=== PATIENT | male | born 1995 | race Caucasian/White ===

== ENCOUNTER → 2016-05-09 | Outpatient (CLI) | payer OTHER ==
--- NOTE | 2016-05-09 12:16 | US ---
EXAMINATION TYPE: US abdomen complete DATE OF EXAM: 05/09/2016 11:13 AM COMPARISON: CT 2015 , US 2014 CLINICAL History: mid abd pain loss of appetite for a year EXAM MEASUREMENTS: Liver Length:13.7 cm Gallbladder Wall: 0.1 cm CBD: 0.3 cm Spleen: 11.2 cm Right Kidney: 11.1 x 4.3 x 5.7 cm Left Kidney: 11.0 x 4.4 x 5.2 cm ANATOMY: TECHNOLOGIST IMPRESSION: large body habitus, overlying bowel gas Pancreas: large body habitus, overlying bowel gas, portions seen wnl Liver: wnl Gallbladder: Within normal limits Evidence for sonographic Jo's sign: no CBD: Within normal limits Spleen: Within normal limits Right Kidney: No hydronephrosis or masses seen Left Kidney: No hydronephrosis or masses seen Upper IVC: Within normal limits large body habitus, overlying bowel gas Abd Aorta: Within normal limitslarge body habitus, overlying bowel gas No acute changes are evident. Some debris may be within the gallbladder. This could be due to averagi ng with the adjacent wall as well. IMPRESSION: 1. No acute abdominal process. 2. Some debris may be within the gallbladder.
== END | disposition home or self-care (01) ==
LOC: RADUSWWP 10:57
PROVIDERS: ATTEND Family Medicine
DX: R10.9 Unspecified abdominal pain (principal)
CPT/HCPCS: 76700

== ENCOUNTER → 2016-05-25 | Outpatient (CLI) | payer OTHER ==
--- NOTE | 2016-05-25 10:09 | NM ---
EXAMINATION TYPE: NM hepatobiliary w EF DATE OF EXAM: 05/25/2016 10:01 AM COMPARISON: NONE HISTORY: Right upper quadrant pain TECHNIQUE: After the intravenous administration of 4.59 mCi Tc 99m Mebrofenin hepatobiliary scintigra phy is performed. Immediate images post injection. FINDINGS: There is satisfactory initial accumulation of tracer by the liver. The gallbladder is visualized wit hin 12 minutes. The small bowel activity is noted within 4 minutes. At one hour 8 ounces of oral en sure plus is given to mimic CCK and gallbladder ejection fraction is calculated at 85 %, in the ge l range. Therefore there is no scintigraphic evidence of cystic or common bile duct obstruction to s uggest acute cholecystitis or gallbladder dyskinesia. IMPRESSION: Hypercontractility of the gallbladder.
== END | disposition home or self-care (01) ==
LOC: RADNMMAIN 08:08
PROVIDERS: ATTEND Family Medicine
DX: K82.0 Obstruction of gallbladder (principal)
CPT/HCPCS: 78226; A9537

== ENCOUNTER → 2016-05-30 | Outpatient (CLI) | payer OTHER ==
--- NOTE | 2016-05-30 10:53 | XR ---
EXAMINATION TYPE: XR lumbar spine 2 or 3V DATE OF EXAM: 05/30/2016 10:44 AM CLINICAL HISTORY: pain TECHNIQUE: Three views of the lumbar spine are submitted. COMPARISON: None. FINDINGS: There are 5 lumbar type vertebral bodies identified. The lumbar spine shows satisfactory alignment w ithout evidence of acute fracture or dislocation. Vertebral body heights are within normal limits. Disc spaces are within normal limits. The overlying soft tissue appears unremarkable. IMPRESSION: No acute fracture or dislocation is seen in the lumbar spine. ICD 10 NO FRACTURE, INITIAL EVALUATION
== END | disposition home or self-care (01) ==
LOC: RADXRMAIN 10:26
PROVIDERS: ATTEND Family Medicine
DX: M54.5 Low back pain (principal)
CPT/HCPCS: 72100

== ENCOUNTER 2016-06-15 20:40 | Emergency (ER) | payer OTHER ==
[2016-06-15 20:54] VITALS: TEMP 98.2
[2016-06-15] MEDS ORDERED: KETOROLAC 60 MG/2 ML VIAL IM STA (22:49)
[2016-06-15] MEDS ORDERED: CYCLOBENZAPRINE 10 MG TAB PO STA (22:50)
--- NOTE | 2016-06-15 22:53 | ED ---
Back Pain HPI - General Chief Complaint: Back Pain/Injury Stated Complaint: Back Pain Time Seen by Provider: 06/15/16 21:46 Source: patient, RN notes reviewed Limitations: no limitations - History of Present Illness Initial Comments: Patient is 20-year-old male presents to the emergency room for evaluation of right-sided low back pain. Patient states he woke up this morning, did chores and began having pinching right-sided back pain. Patient states the pain has not subsided since it began. Patient denies taking anything for his symptoms. Patient denies fecal or urinary incontinence. Patient denies saddle anesthesia. Patient denies numbness or tingling in his extremities. Patient denies any history of low back pain. Patient states pain is worse whenever he moves his back or walks. Patient denies recent falls or trauma to his back. Patient denies any recent heavy lifting. - Related Data Home Medications Medication Instructions Recorded Confirmed Multivitamins, Thera [Multivitamin] 1 tab PO DAILY 06/15/16 06/15/16 Previous Rx's Medication Instructions Recorded Cyclobenzaprine [Flexeril] 10 mg PO TID PRN #12 tab 06/15/16 Allergies Allergy/AdvReac Type Severity Reaction Status Date / Time prochlorperazine AdvReac AGITATION Verified 06/15/16 21:32 [From Compazine] Review of Systems ROS Statement: Those systems with pertinent positive or pertinent negative responses have been documented in the HPI. ROS Other: All systems not noted in ROS Statement are negative. Past Medical History Past Medical History: Hyperlipidemia History of Any Multi-Drug Resistant Organisms: None Reported Past Surgical History: No Surgical Hx Reported Past Psychological History: ADD/ADHD Smoking Status: Current every day smoker Past Alcohol Use History: Occasional Past Drug Use History: Marijuana General Exam - General Exam Comments Initial Comments: Laying in exam room, uncomfortable secondary to pain, no acute distress. Limitations: no limitations General appearance: alert, in no apparent distress Head exam: Present: atraumatic, normocephalic, normal inspection Eye exam: Present: normal appearance ENT exam: Present: normal exam Neck exam: Present: normal inspection Respiratory exam: Absent: respiratory distress Back exam: Present: normal inspection, paraspinal tenderness (Right lumbosacral area). Absent: vertebral tenderness Expanded Back exam: Negative Straight Leg Raising: Left, Right Neurological exam: Present: alert, oriented X3 Psychiatric exam: Present: normal affect, normal mood Skin exam: Present: warm, dry, intact, normal color. Absent: rash Course Vital Signs 06/15/16 06/15/16 20:50 23:34 Temperature 98.2 F Pulse Rate 86 83 Respiratory 18 16 Rate Blood Pressure 135/66 150/85 O2 Sat by Pulse 98 97 Oximetry Medical Decision Making - Medical Decision Making Patient is a 20-year-old male presents emergency room for evaluation of right- sided back pain. Patient has no neuro deficits. Will send patient home with muscle relaxers and advised him to return for any worsening symptoms. Patient states he has ibuprofen at home. Patient states he understands everything that was discussed with him. Return parameters discussed. Case discussed with Dr. Mosqueda. Disposition Clinical Impression: Low back strain Disposition: HOME SELF-CARE Instructions: Acute Low Back Pain (ED) Additional Instructions: Alternate ice and heat. Take ibuprofen as needed for pain. Take Flexeril as needed for severe pain. Please follow up with primary care provider in 1-2 days. If any new symptom arises or symptoms worsen, return to ER as soon as possible. Prescriptions: Cyclobenzaprine [Flexeril] 10 mg PO TID PRN #12 tab PRN Reason: Pain Referrals: Marcos Motta DO [Primary Care Provider] - 1-2 days Time of Disposition: 22:52
[2016-06-15 23:35] VITALS: BP 150/85; PULSE 83; RESP 16
== END 2016-06-15 23:34 | disposition home or self-care (01) ==
LOC: EC 20:40
DX: S39.012A Strain of muscle, fascia and tendon of lower back, initial encounter (principal); F17.200 Nicotine dependence, unspecified, uncomplicated; Z79.899 Other long term (current) drug therapy; Z88.8 Allergy status to other drugs, medicaments and biological substances; X58.XXXA Exposure to other specified factors, initial encounter
CPT/HCPCS: 99283; 96372; J1885

== ENCOUNTER 2016-06-24 10:45 | Day surgery (SDC) | payer OTHER ==
[2016-06-21 15:56] VITALS: BMI 31.8
[~2016-06-24 10:45] MED LIST: DEXAMETHASONE SOD PHOSPHATE 10 MG/ML 1 ML VIAL IV ONE; HEPARIN SODIUM,PORCINE 5,000 UNIT/ML 1 ML VIAL SQ ONE; LACTATED RINGERS 1,000 ML IV SCH; MIDAZOLAM 2 MG/2 ML VIAL IV PRN; ONDANSETRON 4 MG/2 ML VIAL IVP ONE; SCOPOLAMINE 1.5MG/72HR PATCH TRANSDERM ONE; ceFAZolin 2 GM in SODIUM CHLORIDE 0.9% 100 ML IVPB ONE
[2016-06-24] MEDS ORDERED: LIDOCAINE 1% 20 ML VIAL (10MG/ML) FOR IV START INTRADERMA ONE (11:02)
--- NOTE | 2016-06-24 12:13 | P.GSHP ---
History of Present Illness H&P Date: 06/24/16 Chief Complaint: Right upper quadrant pain This a 20-year-old male referred from Dr. Marcos Walsh. Patient presents today for laparoscopic cholecystectomy. He's had several months were quadrant pain. His recent HIDA scan shows an elevated ejection fraction cyst with biliary hyperkinesis. - Constitutional Constitutional: Reports as per HPI Past Medical History Past Medical History: Hyperlipidemia Additional Past Medical History / Comment(s): ABD. PAIN, DIARRHEA, NAUSEA History of Any Multi-Drug Resistant Organisms: None Reported Past Surgical History: No Surgical Hx Reported Additional Past Surgical History / Comment(s): WISDOM TEETH Past Anesthesia/Blood Transfusion Reactions: No Reported Reaction Past Psychological History: ADD/ADHD Additional Psychological History / Comment(s): NO CURRENT MEDICATION Smoking Status: Current some day smoker Past Alcohol Use History: Occasional Additional Past Alcohol Use History / Comment(s): 1/2 PPD FOR 4 YEARS Past Drug Use History: Marijuana Additional Drug Use History / Comment(s): STATES DAILY USE, INSTRUCTED TO HOLD 24 HRS PRIOR TO SURGERY Medications and Allergies Home Medications Medication Instructions Recorded Confirmed Type Multivitamins, Thera [Multivitamin] 1 tab PO DAILY 06/15/16 06/24/16 History Allergies Allergy/AdvReac Type Severity Reaction Status Date / Time prochlorperazine AdvReac AGITATION Verified 06/24/16 10:55 [From Compazine] Surgical - Exam Vital Signs Temp Pulse Resp BP Pulse Ox 97.3 F L 79 16 131/81 97 06/24/16 11:01 06/24/16 11:01 06/24/16 11:01 06/24/16 11:01 06/24/16 11:01 - General well developed, no distress - Eyes PERRL - ENT normal pinna - Neck no masses - Respiratory normal expansion - Cardiovascular Rhythm: regular - Abdomen Abdomen: soft, non tender Assessment and Plan Plan: Right upper quadrant pain Chronically cholecystitis Abnormal HIDA scan We will perform laparoscopic cholecystectomy
[2016-06-24] MEDS ORDERED: NEOSTIGMINE 1 MG/ML 10 ML VIAL ONE (12:22)
[2016-06-24] MEDS ORDERED: MIDAZOLAM 2 MG/2 ML VIAL ONE (12:22)
[2016-06-24] MEDS ORDERED: GLYCOPYRROLATE 0.2 MG/ML 2 ML VIAL ONE (12:22)
[2016-06-24] MEDS ORDERED: fentaNYL (PF) 50 MCG/ML 2 ML AMP ONE (12:22)
[2016-06-24] MEDS ORDERED: PROPOFOL 10 MG/ML 20 ML VIAL IV ONE (12:22)
[2016-06-24] MEDS ORDERED: HYDROmorphone (PF) 1 MG/ML ONE (12:22)
[2016-06-24] MEDS ORDERED: LIDOCAINE 1% INJ 10MG/ML (20 ML MDV) ONE (12:22)
[2016-06-24] MEDS ORDERED: ROCURONIUM BROMIDE 10 MG/ML 10 ML VIAL IV ONE (12:22)
[2016-06-24] MEDS ORDERED: BUPIVACAIN-EPI 0.25%-1:200,000 30 ML VIAL SQ ONE (12:58)
[2016-06-24] MEDS ORDERED: LACTATED RINGERS 1,000 ML IV ONE (12:59)
--- NOTE | 2016-06-24 13:23 | P.OP ---
Date of Procedure: 06/24/16 Preoperative Diagnosis: Cholecystitis Postoperative Diagnosis: Cholecystitis Procedure(s) Performed: Laparoscopic cholecystectomy Anesthesia: ASH Surgeon: Leroy Padron Estimated Blood Loss (ml): 5 Pathology: other (Gallbladder) Condition: stable Disposition: PACU Description of Procedure: The patient was placed on the operating table. The patient received a general endotracheal tube anesthesia. The patients abdomen was prepped and draped in the usual sterile fashion. Through an infraumbilical stab incision, the fascia of the anterior abdominal wall was grasped with a pair of Kochers and then the Veress needle was placed in the peritoneal cavity. Position of the Veress needle was confirmed with positive drop test. The abdomen was then insufflated. After adequate insufflation, the 10 mm trocar was placed in the peritoneal cavity. Following this the laparoscope was placed in the peritoneal cavity. The patient was placed in the head-up, right side up position and then a 5 mm trocar was placed in the right lateral and right subcostal position under direct visualization. A 8 mm trocar was placed in the epigastric position. The gallbladder was grasped in the fundus and infundibulum. Traction on the gallbladder was placed in the lateral and the cephalad positions. The triangle of Calot was visualized.. The cystic duct was bluntly dissected until the union of the cystic duct and common bile duct was seen. The cystic duct was then divided and sealed with the Harmonic scissors. A PDS Endoloop was then placed throughout the cystic duct stump. The cystic artery divided and sealed with the Harmonic scissors. The gallbladder was then removed from the liver bed using Harmonic scissors. The gallbladder was then extracted through the epigastric port site. Operative field was checked for any bleeding spots and Harmonic scissors was used to coagulate the liver bed. The abdomen was irrigated. The trocars were removed. The skin was closed using interrupted 3-0 Vicryl suture. Dermabond dressing were applied. The patient tolerated the procedure well.
[2016-06-24] MEDS: HYDROmorphone 1 MG/ML 1 ML SYRINGE IVP PRN ×2 (13:31→13:36)
[2016-06-24 13:39] VITALS: TEMP 97.6
[2016-06-24] MEDS ORDERED: KETOROLAC 30 MG/ML 1 ML VIAL IVP ONE (13:46)
[2016-06-24 14:22] VITALS: RESP 18
[2016-06-24 14:41] VITALS: BP 134/91
[2016-06-24 15:13] VITALS: PULSE 69
== END 2016-06-24 15:14 | disposition home or self-care (01) ==
LOC: OR 10:45
PROVIDERS: ATTEND Surgery
DX: K81.1 Chronic cholecystitis (principal); E07.9 Disorder of thyroid, unspecified; F90.9 Attention-deficit hyperactivity disorder, unspecified type; K21.9 Gastro-esophageal reflux disease without esophagitis; F17.200 Nicotine dependence, unspecified, uncomplicated; Z88.8 Allergy status to other drugs, medicaments and biological substances; Z79.899 Other long term (current) drug therapy
CPT/HCPCS: 88304; 47562; J2250; J1644; J1100; J2710; J0690; J2405; J2001; J3010; J1885; J1170; J2704

== ENCOUNTER 2016-06-25 19:01 | Observation (INO) | payer OTHER ==
[2016-06-25] MEDS ORDERED: SODIUM CHLORIDE 0.9% 1,000 ML IV STA ×2 (19:59)
[2016-06-25] MEDS ORDERED: ONDANSETRON 4 MG/2 ML VIAL IVP STA (19:59)
[2016-06-25] MEDS ORDERED: HYDROmorphone 1 MG/ML 1 ML SYRINGE IVP STA (19:59)
[2016-06-25] MEDS ORDERED: PANTOPRAZOLE 40 MG/10 ML VIAL IVP STA (19:59)
--- NOTE | 2016-06-25 20:06 | ED ---
General Adult HPI - General Chief complaint: Recheck/Abnormal Lab/Rx Stated complaint: POST OP PAIN, BLEEDING Time Seen by Provider: 06/25/16 19:45 Source: patient, family, RN notes reviewed Mode of arrival: ambulatory Limitations: no limitations - History of Present Illness Initial comments: Chief complaint and history of present illness is a 20-year-old male who had a laparoscopic cholecystectomy yesterday. Last night he had difficulty breathing when laying down he had significant pain in the midepigastric region. He noticed today had a large discoloration ecchymotic area at the site of the midline trocar insertion. He reports was hard to breathe because of the pain it caused lung breathing. He had to sleep upright. Pain persisted throughout the day. Today became very nauseated and vomited a large amount of black material. - Related Data Home Medications Medication Instructions Recorded Confirmed Multivitamins, Thera [Multivitamin] 1 tab PO DAILY 06/15/16 06/25/16 HYDROcodone/APAP 7.5-325MG [[place] 1 tab PO Q4H PRN 06/25/16 06/25/16 7.5] Allergies Allergy/AdvReac Type Severity Reaction Status Date / Time prochlorperazine AdvReac AGITATION Verified 06/25/16 19:23 [From Compazine] Review of Systems ROS Statement: Those systems with pertinent positive or pertinent negative responses have been documented in the HPI. Review of systems no complaint headache or visual acuity changes no chest pain feel short of breath because hard to breathe when he lays down because of the pain from his abdomen especially the epigastric region where he has an ecchymotic area and possible small hematoma and trocar insertion site. Denies chills. He did vomit once he reportedly was a large amount of black material. Did not have any preceding stomach ulcers or problems. Has not had a bowel movement yet. All systems reviewed Past medical problems significant for hyperlipidemia which is controlled with losing weight. He's had chronic abdominal pain for months. He reports test showed he had a bad gallbladder. He had a cholecystectomy done laparoscopically yesterday. He also had daily diarrhea for months. Other surgeries include wisdom teeth removal. Family history significant for grandmother with skin cancer grandmother and mother with ovarian cancer. The patient has ALLERGIES to Compazine. He does smoke cigarettes strongly encouraged to stop drinks alcohol occasionally. ROS Other: All systems not noted in ROS Statement are negative. Past Medical History Past Medical History: Hyperlipidemia Additional Past Medical History / Comment(s): ABD. PAIN, DIARRHEA, NAUSEA History of Any Multi-Drug Resistant Organisms: None Reported Past Surgical History: Cholecystectomy Additional Past Surgical History / Comment(s): WISDOM TEETH Past Anesthesia/Blood Transfusion Reactions: No Reported Reaction Past Psychological History: ADD/ADHD Additional Psychological History / Comment(s): NO CURRENT MEDICATION Smoking Status: Current some day smoker Past Alcohol Use History: Occasional Additional Past Alcohol Use History / Comment(s): 1/2 PPD FOR 4 YEARS Past Drug Use History: Marijuana Additional Drug Use History / Comment(s): STATES DAILY USE, INSTRUCTED TO HOLD 24 HRS PRIOR TO SURGERY General Exam - General Exam Comments Initial Comments: General: The patient is awake and alert, states she's having epigastric pain or has a large area of ecchymosis and possible hematoma in the subcu tissue. Also vomited large amount of black material one day after that was Cholecystectomy. Vital signs show temperature 97.3 pulse 72 respiratory rate 20 pulse ox on percent room air blood pressure 132/79 Eye: Pupils are equal, , extra-ocular movements are intact; there is normal conjunctiva bilaterally. No signs of icterus. Ears, nose, mouth and throat: There are moist mucous membranes Neck: The neck is supple, there is no tenderness Cardiovascular: There is a regular rate and rhythm. No murmur, rub or gallop is appreciated. Respiratory: Lungs are clear to auscultation, respirations are non-labored, breath sounds are equal. No wheezes, stridor, rales, or rhonchi. Gastrointestinal: Patient has midline area of ecchymosis and hematoma at the site of the midline trocar insertion for his surgery yesterday, laparoscopic cholecystectomy. Hypoactive bowel sounds. Voluntary guarding with palpation in the epigastric region. Back: No complaint of back pain. Musculoskeletal: Normal ROM, no tenderness, There is no pedal edema. There is no calf tenderness or swelling. Sensation intact. Pulses equal bilaterally 2+. Neurological: No complaint of any neuro deficits. Skin: Ecchymotic area midline upper abdomen Limitations: no limitations Course Vital Signs 06/25/16 19:07 Temperature 97.3 F L Pulse Rate 72 Respiratory 20 Rate Blood Pressure 132/79 O2 Sat by Pulse 100 Oximetry Medical Decision Making - Medical Decision Making Medical decision making; patient's white count 7.6 hemoglobin 14 hematocrit of 43. Potassium is 3.3 glucose 116. BUN 13 creatinine 0.87 the GFR greater than 60. Total bilirubin elevated at 2.0 AST ALT 250 each X-rays of the abdomen done 2 views. Awaiting radiologist's impression. This time does appear to be nonspecific. No evidence of obstruction. Case discussed with , patient be admitted to his service with IV hydration, potassium replenishment. Pain management. - Lab Data Result diagrams: 06/25/16 20:18 06/25/16 20:18 Lab Results 06/25/16 06/25/16 Range/Units 20:18 20:18 WBC 7.6 (3.8-10.6) k/uL RBC 4.69 (4.30-5.90) m/uL Hgb 14.0 (13.0-17.5) gm/dL Hct 43.1 (39.0-53.0) % MCV 91.9 (80.0-100.0) fL MCH 29.8 (25.0-35.0) pg MCHC 32.4 (31.0-37.0) g/dL RDW 12.8 (11.5-15.5) % Plt Count 205 (150-450) k/uL Neutrophils % 65 % Lymphocytes % 25 % Monocytes % 7 % Eosinophils % 1 % Basophils % 0 % Neutrophils # 5.0 (1.3-7.7) k/uL Lymphocytes # 1.9 (1.0-4.8) k/uL Monocytes # 0.5 (0-1.0) k/uL Eosinophils # 0.1 (0-0.7) k/uL Basophils # 0.0 (0-0.2) k/uL Sodium 143 (137-145) mmol/L Potassium 3.3 L (3.5-5.1) mmol/L Chloride 101 (98-107) mmol/L Carbon Dioxide 27 (22-30) mmol/L Anion Gap 15 mmol/L BUN 13 (9-20) mg/dL Creatinine 0.87 (0.66-1.25) mg/dL Est GFR (MDRD) Af Amer >60 (>60 ml/min/1.73 sqM) Est GFR (MDRD) Non-Af >60 (>60 ml/min/1.73 sqM) Glucose 116 H (74-99) mg/dL Calcium 10.0 (8.4-10.2) mg/dL Total Bilirubin 2.0 H (0.2-1.3) mg/dL AST 254 H (17-59) U/L ALT 226 H (21-72) U/L Alkaline Phosphatase 118 (38-126) U/L Total Protein 8.5 H (6.3-8.2) g/dL Albumin 4.9 (3.5-5.0) g/dL Amylase 59 (30-110) U/L Lipase 61 (23-300) U/L Disposition Clinical Impression: Postoperative epigastric abdominal pain Disposition: ADMITTED IP TO THIS HOSP Condition: Stable
[2016-06-25 20:25] LABS: Basophils % (A) 0 %; CH 31.2; CHCM 34.1; Eosinophils # (A) 0.1 k/uL (0-0.7); Eosinophils % (A) 1 %; HCT 43.1 % (39.0-53.0); Luc # (Auto) 0.15; Luc % (Auto) 2; Lymphocytes # (A) 1.9 k/uL (1.0-4.8); Lymphocytes % (A) 25 %; MCH 29.8 pg (25.0-35.0); MCHC 32.4 g/dL (31.0-37.0); MCV 91.9 fL (80.0-100.0); Mean Platelet Volume 7.2; Monocytes # (A) 0.5 k/uL (0-1.0); Monocytes % (A) 7 %; Neutrophils % (A) 65 %; RBC 4.69 m/uL (4.30-5.90); RDW 12.8 % (11.5-15.5); WBC 7.6 k/uL (3.8-10.6); WBC (Perox) 7.46
[2016-06-25 20:35] LABS: ALT 226 U/L (21-72); AST 254 U/L (17-59); Alkaline Phosphatase 118 U/L (38-126); Amylase 59 U/L (30-110); Anion Gap 15 mmol/L; Blood Urea Nitrogen 13 mg/dL (9-20); Carbon Dioxide 27 mmol/L (22-30); Chloride 101 mmol/L (98-107); Glucose 116 mg/dL (74-99); Non-African American GFR(MDRD) >60 (>60 ml/min/1.73 sqM); Potassium 3.3 mmol/L (3.5-5.1); Sodium 143 mmol/L (137-145); Total Protein 8.5 g/dL (6.3-8.2)
[2016-06-25] MEDS ORDERED: POTASSIUM CHLORIDE 20 MEQ, LIDOCAINE 2% INJ 20 MG in SODIUM CHLORIDE 0.9% 100 ML IVPB ONE (21:07)
[2016-06-25] MEDS ORDERED: HYDROmorphone 1 MG/ML 1 ML SYRINGE IV PRN (21:12)
[2016-06-25] MEDS ORDERED: NALOXONE 0.4 MG/ML 1 ML VIAL IV PRN (21:12)
[2016-06-25] MEDS ORDERED: ONDANSETRON 4 MG/2 ML VIAL IVP PRN (21:12)
--- NOTE | 2016-06-25 21:36 | XR ---
EXAMINATION TYPE: XR abdomen 2V DATE OF EXAM: 06/25/2016 8:57 PM COMPARISON: NONE INDICATION: Abdomen pain TECHNIQUE: Abdomen examined in supine and upright views. FINDINGS: There is a normal bowel gas pattern. Psoas margins are normal. No organomegaly is present. No suspicious air-fluid levels or differential air-fluid levels are present. No free air is present. IMPRESSION: 1. Unremarkable Abdomen
[2016-06-25] MEDS ORDERED: LORazepam 1 MG TAB PO STA (21:47)
[2016-06-25 21:57] VITALS: RESP 18
[2016-06-26 01:10] VITALS: BMI 31.8
[2016-06-26 07:10] LABS: Basophils % (A) 0 %; CH 30.8; CHCM 33.2; Eosinophils % (A) 1 %; HCT 42.2 % (39.0-53.0); HDW 2.41; HGB 13.6 gm/dL (13.0-17.5); Luc # (Auto) 0.11; Luc % (Auto) 2; Lymphocytes # (A) 1.6 k/uL (1.0-4.8); Lymphocytes % (A) 30 %; MCH 30.1 pg (25.0-35.0); MCHC 32.3 g/dL (31.0-37.0); MCV 93.2 fL (80.0-100.0); Mean Platelet Volume 6.7; Monocytes # (A) 0.4 k/uL (0-1.0); Monocytes % (A) 9 %; Neutrophils % (A) 58 %; RBC 4.53 m/uL (4.30-5.90); RDW 12.9 % (11.5-15.5); WBC 5.2 k/uL (3.8-10.6); WBC (Perox) 5.35
[2016-06-26 07:24] LABS: ALT 382 U/L (21-72); AST 332 U/L (17-59); Alkaline Phosphatase 104 U/L (38-126); Anion Gap 8 mmol/L; Blood Urea Nitrogen 11 mg/dL (9-20); Calcium 9.6 mg/dL (8.4-10.2); Carbon Dioxide 31 mmol/L (22-30); Chloride 103 mmol/L (98-107); Glucose 95 mg/dL (74-99); Non-African American GFR(MDRD) >60 (>60 ml/min/1.73 sqM); Potassium 4.5 mmol/L (3.5-5.1); Sodium 142 mmol/L (137-145); Total Bilirubin 2.3 mg/dL (0.2-1.3); Total Protein 7.3 g/dL (6.3-8.2)
[2016-06-26] MEDS: SODIUM CHLORIDE 0.9% 1,000 ML IV SCH ×2 (08:02→14:11)
[2016-06-26 08:15] VITALS: BP 123/68; PULSE 68; TEMP 97.7
--- NOTE | 2016-06-26 08:51 | P.GSHP ---
History of Present Illness H&P Date: 06/26/16 Chief Complaint: Epigastric pain This a 20-year-old male who presented to the emergency room yesterday evening. The patient is one day status post laparoscopic cholecystectomy. Patient had epigastric pain near the port site. He has developed some ecchymosis at this area. Patient developed nausea after taking pain meds and had an emesis. The patient has received fluid hydration overnight. He actually feels better today and is wishing to go home. He's not to have some mild elevation of his liver function tests. - Constitutional Constitutional: Reports as per HPI Past Medical History Past Medical History: Hyperlipidemia Additional Past Medical History / Comment(s): ABD. PAIN, DIARRHEA, NAUSEA History of Any Multi-Drug Resistant Organisms: None Reported Past Surgical History: Cholecystectomy Additional Past Surgical History / Comment(s): WISDOM TEETH Past Anesthesia/Blood Transfusion Reactions: No Reported Reaction Past Psychological History: ADD/ADHD Additional Psychological History / Comment(s): NO CURRENT MEDICATION Smoking Status: Current some day smoker Past Alcohol Use History: Occasional Additional Past Alcohol Use History / Comment(s): 1/2 PPD FOR 4 YEARS Past Drug Use History: Marijuana Additional Drug Use History / Comment(s): STATES DAILY USE, INSTRUCTED TO HOLD 24 HRS PRIOR TO SURGERY Medications and Allergies Home Medications Medication Instructions Recorded Confirmed Type Multivitamins, Thera [Multivitamin] 1 tab PO DAILY 06/15/16 06/25/16 History HYDROcodone/APAP 7.5-325MG [[place] 1 tab PO Q4H PRN 06/25/16 06/25/16 History 7.5] Allergies Allergy/AdvReac Type Severity Reaction Status Date / Time prochlorperazine AdvReac AGITATION Verified 06/25/16 19:23 [From Compazine] Surgical - Exam Vital Signs Temp Pulse Resp BP Pulse Ox 97.3 F L 72 20 132/79 100 06/25/16 19:07 06/25/16 19:07 06/25/16 19:07 06/25/16 19:07 06/25/16 19:07 - General well developed, well nourished, no distress - Eyes PERRL - ENT normal pinna - Neck no masses - Respiratory normal expansion - Cardiovascular Rhythm: regular - Abdomen Abdomen soft. There is some area of ecchymosis around the epigastric trocar site measured probably 10 cm in diameter. There is no rebound or guarding. There is some minimal tenderness at the epigastric trocar site. There is abdominal distention.. Abdomen: soft Results - Labs 06/26/16 06:16 06/26/16 06:16 Abnormal Lab Results - Last 24 Hours (Table) 06/26/16 Range/Units 06:16 Carbon Dioxide 31 H (22-30) mmol/L Total Bilirubin 2.3 H (0.2-1.3) mg/dL AST 332 H (17-59) U/L ALT 382 H (21-72) U/L Diabetes panel 06/26/16 Range/Units 06:16 Sodium 142 (137-145) mmol/L Potassium 4.5 (3.5-5.1) mmol/L Chloride 103 (98-107) mmol/L Carbon Dioxide 31 H (22-30) mmol/L BUN 11 (9-20) mg/dL Creatinine 1.01 (0.66-1.25) mg/dL Glucose 95 (74-99) mg/dL Calcium 9.6 (8.4-10.2) mg/dL AST 332 H (17-59) U/L ALT 382 H (21-72) U/L Alkaline Phosphatase 104 (38-126) U/L Total Protein 7.3 (6.3-8.2) g/dL Albumin 4.2 (3.5-5.0) g/dL Calcium panel 06/26/16 Range/Units 06:16 Calcium 9.6 (8.4-10.2) mg/dL Albumin 4.2 (3.5-5.0) g/dL Pituitary panel 06/26/16 Range/Units 06:16 Sodium 142 (137-145) mmol/L Potassium 4.5 (3.5-5.1) mmol/L Chloride 103 (98-107) mmol/L Carbon Dioxide 31 H (22-30) mmol/L BUN 11 (9-20) mg/dL Creatinine 1.01 (0.66-1.25) mg/dL Glucose 95 (74-99) mg/dL Calcium 9.6 (8.4-10.2) mg/dL Adrenal panel 06/26/16 Range/Units 06:16 Sodium 142 (137-145) mmol/L Potassium 4.5 (3.5-5.1) mmol/L Chloride 103 (98-107) mmol/L Carbon Dioxide 31 H (22-30) mmol/L BUN 11 (9-20) mg/dL Creatinine 1.01 (0.66-1.25) mg/dL Glucose 95 (74-99) mg/dL Calcium 9.6 (8.4-10.2) mg/dL Total Bilirubin 2.3 H (0.2-1.3) mg/dL AST 332 H (17-59) U/L ALT 382 H (21-72) U/L Alkaline Phosphatase 104 (38-126) U/L Total Protein 7.3 (6.3-8.2) g/dL Albumin 4.2 (3.5-5.0) g/dL - Imaging Abdominal x-ray: report reviewed (Nonspecific) Assessment and Plan Plan: Status post laparoscopic cholecystectomy postoperative day 2. Patient feels well. His liver function tests were mildly elevated. We will order a HIDA scan to make sure there is no evidence of biliary obstruction or leak.
[2016-06-26] MEDS ORDERED: PANTOPRAZOLE 40 MG/10 ML VIAL IV SCH (09:00)
--- NOTE | 2016-06-26 11:53 | NM ---
EXAMINATION TYPE: NM hepatobiliary wo EF DATE OF EXAM: 06/26/2016 11:35 AM COMPARISON: NONE HISTORY: Pain following cholecystectomy. TECHNIQUE: After the intravenous administration of 5.3 mCi Tc 99m Mebrofenin hepatobiliary scintigrap hy is performed. Immediate images post injection. FINDINGS: There is prompt egress of activity from the liver into the small bowel. No abnormal activity is seen. IMPRESSION: STATUS POST CHOLECYSTECTOMY.
--- NOTE | 2016-10-08 08:59 | DS ---
DATE OF ADMISSION: 06/25/2016 DATE OF DISCHARGE: 06/26/2016 COURSE IN THE HOSPITAL: This is a 22-year-old male who is admitted for postoperative pain after a laparoscopic cholecystectomy. The patient's stay was unremarkable. Please see hospital chart for details.
== END 2016-06-26 14:08 | disposition home or self-care (01) ==
LOC: EC 19:01 → 3OBS 21:10
PROVIDERS: ADMIT Surgery; ATTEND Surgery
DX: G89.18 Other acute postprocedural pain (principal); R10.13 Epigastric pain; S30.1XXA Contusion of abdominal wall, initial encounter; R11.2 Nausea with vomiting, unspecified; Z90.49 Acquired absence of other specified parts of digestive tract; F17.200 Nicotine dependence, unspecified, uncomplicated; Z88.8 Allergy status to other drugs, medicaments and biological substances; L76.32 Postprocedural hematoma of skin and subcutaneous tissue following other procedure; Y83.6 Removal of other organ (partial) (total) as the cause of abnormal reaction of the patient, or of later complication, without mention of misadventure at the time of the procedure
CPT/HCPCS: 36415; 80053 ×2; 82150; 83690; 85025 ×2; 74020; 78226; 99285; 96365; 96375; 96361; G0378 ×2; A9537; J2001; J2405; J3480; J1170; C9113 ×2; 96376

== ENCOUNTER 2016-07-20 13:14 | Emergency (ER) | payer OTHER ==
[2016-07-20 13:18] VITALS: BP 132/91; PULSE 90; RESP 20; TEMP 97.5
--- NOTE | 2016-07-20 13:29 | ED ---
General Adult HPI - General Chief complaint: Extremity Injury, Upper Stated complaint: Hand Pain Time Seen by Provider: 07/20/16 13:18 Source: patient, RN notes reviewed Mode of arrival: ambulatory Limitations: no limitations - History of Present Illness Initial comments: This is a 21yo male who presents with left hand pain since last night. Patient states he slammed his left hand in the trunk of his car. Patient states it hurts worse to the ulnar aspect of the left hand. Patient states it hurts to make a fist, but the patient is able to move the left hand. Patient denies any numbness/weakness or tingling. Patient denies any recent fever, chills, shortness breath, chest pain, abdominal pain, nausea/vomiting/diarrhea, back pain, hematuria, headache, or visual changes, or any other complaints. - Related Data Home Medications Medication Instructions Recorded Confirmed Multivitamins, Thera [Multivitamin] 1 tab PO DAILY 06/15/16 06/25/16 HYDROcodone/APAP 7.5-325MG [[place] 1 tab PO Q4H PRN 06/25/16 06/25/16 7.5] Allergies Allergy/AdvReac Type Severity Reaction Status Date / Time prochlorperazine AdvReac AGITATION Verified 07/20/16 13:18 [From Compazine] Review of Systems ROS Statement: Those systems with pertinent positive or pertinent negative responses have been documented in the HPI. ROS Other: All systems not noted in ROS Statement are negative. Past Medical History Past Medical History: Hyperlipidemia Additional Past Medical History / Comment(s): ABD. PAIN, DIARRHEA, NAUSEA History of Any Multi-Drug Resistant Organisms: None Reported Past Surgical History: Cholecystectomy Additional Past Surgical History / Comment(s): WISDOM TEETH Past Anesthesia/Blood Transfusion Reactions: No Reported Reaction Past Psychological History: ADD/ADHD Additional Psychological History / Comment(s): NO CURRENT MEDICATION Smoking Status: Current every day smoker Past Alcohol Use History: Occasional Additional Past Alcohol Use History / Comment(s): 1/2 PPD FOR 4 YEARS Past Drug Use History: Marijuana Additional Drug Use History / Comment(s): STATES DAILY USE, INSTRUCTED TO HOLD 24 HRS PRIOR TO SURGERY General Exam - General Exam Comments Initial Comments: General: The patient is awake and alert, in no distress, and does not appear acutely ill. Neck: The neck is supple, there is no tenderness or JVD. Cardiovascular: There is a regular rate and rhythm. No murmur, rub or gallop is appreciated. Respiratory: Lungs are clear to auscultation, respirations are non-labored, breath sounds are equal. No wheezes, stridor, rales, or rhonchi. Musculoskeletal: There is tenderness to palpation over the third fourth and fifth metacarpals and over the fourth and fifth digits of the left hand. There is mild swelling to the ulnar aspect of the left hand with small abrasions to the fourth and fifth MCP joints. There is also some mild tenderness to palpation to the ulnar aspect of the left wrist. There is no tenderness to the anatomical snuffbox. Patient has full range of motion, strength 5/5 and Sensation intact. Radial pulses 2+ bilaterally and capillary refill is normal at less than 2 seconds. Neurological: A&O x 3. CN II-XII intact, There are no obvious motor or sensory deficits. Coordination appears grossly intact. Speech is normal. Skin: Skin is warm and dry and no rashes or lesions are noted. Psychiatric: Normal mood and affect. Limitations: no limitations Course Vital Signs 07/20/16 13:17 Temperature 97.5 F L Pulse Rate 90 Respiratory 20 Rate Blood Pressure 132/91 O2 Sat by Pulse 99 Oximetry Medical Decision Making - Medical Decision Making This is a 21-year-old male who presents with left hand pain. On physical exam There is tenderness to palpation over the third fourth and fifth metacarpals and over the fourth and fifth digits of the left hand. There is mild swelling to the ulnar aspect of the left hand with small abrasions to the fourth and fifth MCP joints. There is also some mild tenderness to palpation to the ulnar aspect of the left wrist. Patient has full range of motion, strength 5/5 and Sensation intact. Radial pulses 2+ bilaterally and capillary refill is normal at less than 2 seconds. X-rays of the left hand and wrist were done and reviewed showing: There is no acute fracture or dislocation seen. Reported by Dr. Menendez. I discussed the results with patient. I discussed rest, ice, elevate and use [place] wrap for compression. I discussed Tylenol and Motrin for pain. I discussed occult fracture. I discussed return parameters.Discussed that patient should follow up with PCP in one to 2 days or return to the [facility] for any worsening symptoms or for any further concerns. Patient was receptive to this plan and patient will be discharged home. Disposition Clinical Impression: Contusion of hand, left, Contusion of wrist, left Disposition: HOME SELF-CARE Condition: Good Instructions: Hand Sprain (ED) Additional Instructions: Please rest, ice, elevate and use Bernardino wrap for compression. Please use Tylenol and Motrin for pain.If symptoms do not improve in the next 7 days repeat x-rays may be needed to rule out occult fracture. Please follow-up with family doctor in the next 2 days of symptoms have not improved. Please return to emergency room if the symptoms increase or worsen or for any other concerns. Referrals: Marcos Motta DO [Primary Care Provider] - 1-2 days Time of Disposition: 13:55
--- NOTE | 2016-07-20 13:41 | XR ---
EXAMINATION TYPE: XR hand complete LT, XR wrist complete LT DATE OF EXAM: 07/20/2016 1:37 PM CLINICAL HISTORY: pain TECHNIQUE: Frontal, lateral and oblique images of the left hand are obtained. COMPARISON: None. FINDINGS: There is no acute fracture/dislocation evident. The joint spaces appear within normal limi ts. Dorsal soft tissue swelling is noted. IMPRESSION: There is no acute fracture or dislocation. ICD 10 NO FRACTURE, INITIAL EVALUATION EXAMINATION TYPE: XR hand complete LT, XR wrist complete LT DATE OF EXAM: 07/20/2016 1:37 PM CLINICAL HISTORY: pain TECHNIQUE: Frontal, lateral and oblique images of the left wrist are obtained. COMPARISON: None. FINDINGS: There is no acute fracture/dislocation evident. The joint spaces appear within normal farrar its. The overlying soft tissue appears unremarkable. IMPRESSION: There is no acute fracture or dislocation seen. ICD 10 NO FRACTURE, INITIAL EVALUATION
== END 2016-07-20 14:00 | disposition home or self-care (01) ==
LOC: EC 13:14
DX: S60.222A Contusion of left hand, initial encounter (principal); S60.212A Contusion of left wrist, initial encounter; W23.0XXA Caught, crushed, jammed, or pinched between moving objects, initial encounter; F17.200 Nicotine dependence, unspecified, uncomplicated; F12.90 Cannabis use, unspecified, uncomplicated; Z88.8 Allergy status to other drugs, medicaments and biological substances
CPT/HCPCS: 99283

== ENCOUNTER 2017-04-20 17:58 | Emergency (ER) | payer OTHER ==
[2017-04-20 18:14] VITALS: BP 147/86; PULSE 98; RESP 17; TEMP 98.8
[2017-04-20] MEDS ORDERED: IBUPROFEN 600 MG TAB PO STA (19:23)
--- NOTE | 2017-04-20 20:00 | ED ---
General Adult HPI - General Chief complaint: ENT Stated complaint: FACIAL SWELLING, DIZZINESS Time Seen by Provider: 04/20/17 19:03 Source: patient, RN notes reviewed Mode of arrival: ambulatory Limitations: no limitations - History of Present Illness Initial comments: This is a 21-year-old male who presents to the emergency department with chief complaint of facial swelling. Patient states that he had right-sided facial swelling along the eye yesterday at approximately 3 PM and again today at work at around noon. Patient states he was sent home and his boss advised him to receive a doctor's note in order to return to work. On presentation to the emergency department, patient no longer has facial swelling. He does state that he has a throbbing headache over the frontal forehead. He states that this is a new onset headache and that he usually does not have headaches. Patient states that for the past 2 months he has also felt dizzy, his last episode being yesterday. Denies fever, chills, chest pain, shortness of breath, abdominal pain, nausea or vomiting, constipation or diarrhea, dysuria or hematuria, numbness or tingling, or vision changes. - Related Data Home Medications Medication Instructions Recorded Confirmed Naproxen Sodium [Aleve] 440 mg PO BID PRN 04/20/17 04/20/17 Allergies Allergy/AdvReac Type Severity Reaction Status Date / Time prochlorperazine AdvReac AGITATION Verified 04/20/17 19:09 [From Compazine] Review of Systems ROS Statement: Those systems with pertinent positive or pertinent negative responses have been documented in the HPI. ROS Other: All systems not noted in ROS Statement are negative. Past Medical History Past Medical History: No Reported History, Hyperlipidemia Additional Past Medical History / Comment(s): ABD. PAIN, DIARRHEA, NAUSEA History of Any Multi-Drug Resistant Organisms: None Reported Past Surgical History: Cholecystectomy Additional Past Surgical History / Comment(s): WISDOM TEETH Past Anesthesia/Blood Transfusion Reactions: No Reported Reaction Past Psychological History: ADD/ADHD Smoking Status: Current every day smoker Past Alcohol Use History: Occasional Past Drug Use History: Marijuana General Exam - General Exam Comments Initial Comments: General: Awake and alert, well-developed; in no apparent distress. HEENT: Head atraumatic, normocephalic. No facial swelling noted at this time. Pupils are equal, round and reactive to light. Extraocular movements intact. Oropharynx moist without erythema or exudate. Neck: Supple. Normal ROM. Cardiovascular: Regular rate and rhythm. No murmurs, rubs or gallops. Chest symmetrical. Respiratory: Lungs clear to auscultation bilaterally. No wheezes, rales or rhonchi. Normal respiratory effort with no use of accessory muscles. Musculoskeletal: Normal ROM, no tenderness bilateral upper and lower extremities. Ambulating normally. Skin: [place], warm and dry without rashes or lesions. Neurological: Alert and oriented x3. CN II-XII grossly intact. Speech is fluent and answers are appropriate. No focal neuro deficits. Psychiatric: Normal mood and affect. No overt signs of depression or anxiety noted. Limitations: no limitations Course Vital Signs 04/20/17 18:11 Temperature 98.8 F Pulse Rate 98 Respiratory 17 Rate Blood Pressure 147/86 O2 Sat by Pulse 100 Oximetry Medical Decision Making - Medical Decision Making This is a 21-year-old male who presented to the emergency department for evaluation of right-sided facial swelling. Patient was sent home from work by his boss today and advised him to obtain a doctor's note in order to return to work. On presentation to the emergency room patient no longer has facial swelling so I'm unable to assess his complaint. He does however complain of a new onset headache. Patient states he normally does not get headaches. He describes the headache as throbbing and is located across his forehead. Patient given ibuprofen while in the emergency department. Computed tomography scan of brain revealed no acute abnormalities. Patient will be discharged home. I provided him with a primary care provider to follow up with. He is in no acute distress at this time. He is in agreement and voices understanding. All questions are answered. - Radiology Data Radiology results: report reviewed CT brain impression: No acute process. Disposition Clinical Impression: Headache Disposition: HOME SELF-CARE Condition: Good Instructions: General Headache (ED) Additional Instructions: Please follow up with primary care provider within 1-2 days. Return to emergency department if symptoms should worsen or any concerns arise. Referrals: None,Stated [Primary Care Provider] - 1-2 days Yahaira Ruffin MD [REFERRING] - 1-2 days Time of Disposition: 20:43
--- NOTE | 2017-04-20 20:21 | CT ---
EXAMINATION: CT brain wo con DATE AND TIME: 04/20/2017 7:55 PM ORDERING PROVIDER: Willow Worrell CLINICAL INDICATION: new onset headache TECHNIQUE: Standard departmental protocol. COMPARISON: None. DESCRIPTION: The calvarium is intact. There is no intracranial hemorrhage. There is no mass or mass e ffect. There is no definite new attenuation defect. Remainder of the intra-axial and extra-axial comp artment examination is unremarkable. The paranasal sinuses, middle ear cavities, and mastoid sinus ai r cells are clear. The orbits are intact. IMPRESSION: NO ACUTE PROCESS.
== END 2017-04-20 20:47 | disposition home or self-care (01) ==
LOC: EC 17:58
DX: R51 Headache (principal); F17.200 Nicotine dependence, unspecified, uncomplicated; Z88.8 Allergy status to other drugs, medicaments and biological substances
CPT/HCPCS: 70450; 99284

== ENCOUNTER 2017-04-26 11:52 | Emergency (ER) | payer OTHER ==
--- NOTE | 2017-04-26 13:12 | ED ---
Chest Pain HPI - General Chief Complaint: Chest Pain Stated Complaint: Chest pain/SOB Time Seen by Provider: 04/26/17 12:44 Source: patient, RN notes reviewed Mode of arrival: wheelchair Limitations: no limitations - History of Present Illness Initial Comments: This is a 21-year-old male who presents to the emergency department with chief complaint of chest pain. Patient states that he had intermittent episodes of chest pain yesterday. His first episode was yesterday morning while at work and then he had another one last evening. He describes the chest pain as a "50 pound weight" on the left side of his chest. Patient states that the chest pain increases with deep breath. He states that right now the pain is constant. He states that currently he feels short of breath and nauseous. Patient also complains of generalized abdominal pain. He states he has been experiencing intermittent abdominal pain for approximately one year since having his gallbladder removed. Patient states that for the past month he has had an increase in his abdominal pain. He states that he has been having diarrhea and a decreased appetite. Denies any vomiting. Patient also complains of low back pain, however he states that this is normal for him. He states that at the age of 17 he had a low back injury after falling on a tractor and has been dealing with chronic low back pain ever since. Patient believes she is having a flareup of his back pain. He denies any saddle paresthesias or loss of bladder or bowel function. He denies any numbness or tingling. He denies any radiation of pain down bilateral legs. Denies fever, dysuria or hematuria, numbness or tingling, headache or vision changes. - Related Data Home Medications Medication Instructions Recorded Confirmed No Known Home Medications [No 04/26/17 04/26/17 Known Home Medications] Allergies Allergy/AdvReac Type Severity Reaction Status Date / Time prochlorperazine AdvReac AGITATION Verified 04/26/17 13:53 [From Compazine] Review of Systems ROS Statement: Those systems with pertinent positive or pertinent negative responses have been documented in the HPI. ROS Other: All systems not noted in ROS Statement are negative. EKG Findings - EKG Comments: EKG Findings:: 12:45:28. Normal sinus rhythm with sinus arrhythmia. Ventricular rate 68 bpm, MA interval 154, QRS duration 80, QT/QTC 376/399 Past Medical History Past Medical History: No Reported History, Hyperlipidemia Additional Past Medical History / Comment(s): ABD. PAIN, DIARRHEA, NAUSEA History of Any Multi-Drug Resistant Organisms: None Reported Past Surgical History: Cholecystectomy Additional Past Surgical History / Comment(s): WISDOM TEETH Past Anesthesia/Blood Transfusion Reactions: No Reported Reaction Past Psychological History: ADD/ADHD Smoking Status: Current every day smoker Past Alcohol Use History: Occasional Past Drug Use History: Marijuana General Exam - General Exam Comments Initial Comments: General: Awake and alert, well-developed; in no apparent distress. Patient does not appear to be in pain or acutely ill. HEENT: Head atraumatic, normocephalic. Pupils are equal, round and reactive to light. Extraocular movements intact. Oropharynx moist without erythema or exudate. Neck: Supple. Normal ROM. Cardiovascular: Regular rate and rhythm. No murmurs, rubs or gallops. Chest symmetrical. Respiratory: Lungs clear to auscultation bilaterally. No wheezes, rales or rhonchi. Normal respiratory effort with no use of accessory muscles. Abdomen: Soft, non-distended. Mild generalized discomfort on palpation. No rigidity, rebound or guarding. Normal bowel sounds in all 4 quadrants. Musculoskeletal: Normal ROM, no tenderness bilateral upper and lower extremities. There is some tenderness on palpation of lumbar paraspinal muscles. Patient has normal range of motion of the back. Sensation is intact. Pedal and posterior tibial pulses are 2+ equal and palpable bilaterally. Skin: [place], warm and dry without rashes or lesions. Neurological: Alert and oriented x3. CN II-XII grossly intact. Speech is fluent and answers are appropriate. No focal neuro deficits. Psychiatric: Normal mood and affect. No overt signs of depression or anxiety noted. Limitations: no limitations Course Vital Signs 04/26/17 12:16 Temperature 96 F L Pulse Rate 73 Respiratory 20 Rate Blood Pressure 132/83 O2 Sat by Pulse 100 Oximetry Chest Pain MDM - MDM This is a 21-year-old male who presents to the emergency department for evaluation of chest pain. EKG revealed normal sinus rhythm. Patient's vital signs stable throughout entire emergency department stay. Chest x-ray revealed no acute cardiopulmonary processes. CBC, CMP and UA were within normal limits. Cardiac profile is negative. D-dimer is within normal limits. Patient also complained of abdominal pain and nausea. Given Zofran and Toradol while in the emergency department. X-ray KUB revealed an overall nonobstructive bowel pattern. On palpation, patient has no rigidity, rebound or guarding. All findings were discussed with patient. He is in no acute distress at this time and vitals are stable. He will be discharged home with recommendation to follow up with primary care provider. He is in agreement voices understanding. All questions were answered. Chest x-ray impression: No acute cardiopulmonary process. X-ray KUB impression: Overall nonobstructive bowel gas pattern. Disposition Clinical Impression: Nonspecific chest pain Disposition: HOME SELF-CARE Condition: Good Instructions: Chest Pain (ED) Additional Instructions: Please follow up with primary care provider within 1-2 days. Return to emergency department if symptoms should worsen or any concerns arise. Referrals: None,Stated [Primary Care Provider] - 1-2 days Jovanna Garcia MD [STAFF PHYSICIAN] - 1-2 days Time of Disposition: 14:13
[2017-04-26 13:32] LABS: Appearance,Urine Clear (Clear); Bilirubin,Urine Negative (Negative); Blood,Urine Negative (Negative); Color,Urine Yellow; Glucose,Urine (UA) Negative (Negative); Ketones,Urine Negative (Negative); Leukocyte Esterase,Urine Negative (Negative); Nitrite,Urine Negative (Negative); PH, Urine 6.5 (5.0-8.0); Protein,Urine Negative (Negative); Specific Gravity,Urine 1.013 (1.001-1.035); Urobilinogen,Urine <2.0 mg/dL (<2.0)
[2017-04-26 13:33] LABS: Basophils % (A) 0 %; Eosinophils # (A) 0.1 k/uL (0-0.7); Eosinophils % (A) 1 %; HCT 46.4 % (39.0-53.0); HGB 15.3 gm/dL (13.0-17.5); Lymphocytes # (A) 1.9 k/uL (1.0-4.8); Lymphocytes % (A) 22 %; MCH 30.4 pg (25.0-35.0); MCHC 32.9 g/dL (31.0-37.0); MCV 92.2 fL (80.0-100.0); Mean Platelet Volume 7.2; Monocytes # (A) 0.4 k/uL (0-1.0); Monocytes % (A) 5 %; Neutrophils # (A) 5.8 k/uL (1.3-7.7); Neutrophils % (A) 69 %; Platelet Count 227 k/uL (150-450); RBC 5.03 m/uL (4.30-5.90); RDW 14.4 % (11.5-15.5); WBC 8.4 k/uL (3.8-10.6)
[2017-04-26 13:41] LABS: D-Dimer 0.19 mg/L FEU (<0.60); INR 1.1 (<1.2); Partial Thromboplastin Time 24.5 sec (22.0-30.0); Prothrombin Time 10.3 sec (9.0-12.0)
[2017-04-26] MEDS: KETOROLAC 30 MG/ML 1 ML VIAL IVP STA (13:45)
[2017-04-26 13:46] LABS: ALT 68 U/L (21-72); AST 25 U/L (17-59); Albumin 4.5 g/dL (3.5-5.0); Alkaline Phosphatase 98 U/L (38-126); Amylase 53 U/L (30-110); Anion Gap 11 mmol/L; Blood Urea Nitrogen 15 mg/dL (9-20); Carbon Dioxide 29 mmol/L (22-30); Chloride 103 mmol/L (98-107); Glucose 100 mg/dL (74-99); Lipase 54 U/L (23-300); Magnesium 2.1 mg/dL (1.6-2.3); Potassium 4.7 mmol/L (3.5-5.1); Sodium 143 mmol/L (137-145); Total Bilirubin 0.3 mg/dL (0.2-1.3); Total Protein 7.5 g/dL (6.3-8.2)
[2017-04-26] MEDS: SODIUM CHLORIDE 0.9% 1,000 ML IV STA (13:46)
[2017-04-26] MEDS: ONDANSETRON 4 MG/2 ML VIAL IVP STA (13:46)
--- NOTE | 2017-04-26 13:47 | XR ---
EXAMINATION TYPE: XR chest 2V DATE OF EXAM: 04/26/2017 COMPARISON: Chest x-ray July 28, 1999 HISTORY: Chest pain for one day TECHNIQUE: Frontal and lateral views of the chest are obtained. FINDINGS: There is no focal air space opacity, pleural effusion, or pneumothorax seen. The cardiac silhouette size is within normal limits. The osseous structures are intact. IMPRESSION: No acute cardiopulmonary process.
--- NOTE | 2017-04-26 13:48 | XR ---
EXAMINATION TYPE: XR KUB DATE OF EXAM: 04/26/2017 1:37 PM CLINICAL HISTORY: Abdominal pain for one day TECHNIQUE: Two Upright KUB images of the abdomen are obtained. COMPARISON: Abdominal x-ray April 15, 2003. FINDINGS: Scattered gas is seen in non-distended small bowel loops. Gas and fecal material is seen in non-distended colon. There is no visceromegaly, pneumoperitoneum, or abnormal calcification apprecia andrew. The lung bases are clear and the osseous structures are intact. IMPRESSION: Overall nonobstructive bowel gas pattern.
[2017-04-26 13:50] LABS: Creatine Kinase 145 U/L (55-170)
[2017-04-26 14:03] LABS: Creatine Kinase MB 1.1 ng/mL (0.0-2.4); Troponin I <0.012 ng/mL (0.000-0.034)
[2017-04-26 23:26] VITALS: BP 129/66; PULSE 71; RESP 16; TEMP 96
== END 2017-04-26 14:34 | disposition home or self-care (01) ==
LOC: EC 11:52
DX: R07.9 Chest pain, unspecified (principal); F17.200 Nicotine dependence, unspecified, uncomplicated; Z90.49 Acquired absence of other specified parts of digestive tract; Z88.8 Allergy status to other drugs, medicaments and biological substances
CPT/HCPCS: 99285; 96374; 96375; 96361; 36415; 93005; 85379; 80053; 82150; 82550; 82553; 83690; 83735; 84484; 85025; 85610; 85730; 81003; 71046; 74018; J2405; J1885

== ENCOUNTER 2017-05-26 10:54 | Emergency (ER) | payer OTHER ==
[2017-05-26 11:21] VITALS: RESP 18
[2017-05-26] MEDS ORDERED: diphenhydrAMINE ELIXIR 25 MG/10 ML CUP PO STA (11:37)
[2017-05-26] MEDS ORDERED: SODIUM CHLORIDE 0.9% 1,000 ML IV STA (11:37)
[2017-05-26] MEDS ORDERED: ONDANSETRON 4 MG/2 ML VIAL IVP STA (11:37)
[2017-05-26] MEDS ORDERED: methylPREDNISolone SOD SUCCI 125 MG/2 ML VIAL IV STA (11:37)
--- NOTE | 2017-05-26 11:39 | ED ---
General Adult HPI - General Chief complaint: Headache Stated complaint: Headache Time Seen by Provider: 05/26/17 11:19 Source: patient, RN notes reviewed Mode of arrival: ambulatory Limitations: no limitations - History of Present Illness Initial comments: Patient 21-year-old male who presents emergency room today with a chief complaint of increased sinus congestion. Also admits to headache over the last 4 days. Patient states that does have a history of migraines but this does feel different. He doesn't some photosensitivity. Denies any nausea vomiting. States located in the left side of the head. Patient states tried over-the- counter medications with little relief. Patient denies any recent fever, chills , shortness of breath, chest pain, back pain, abdominal pain, nausea or vomiting , numbness or tingling, dysuria or hematuria, constipation or diarrhea, visual changes, or any other complaints. - Related Data Previous Rx's Medication Instructions Recorded Amoxicillin/Potassium Clav 1 each PO Q12HR #20 tab 05/26/17 [Augmentin 875-125 Tablet] Fluticasone Propionate [Flonase 1 - 2 spray EA NOSTRIL DAILY 5 05/26/17 Allergy Relief] Days ml Naproxen [Naprosyn] 500 mg PO BID #10 tablet 05/26/17 Allergies Allergy/AdvReac Type Severity Reaction Status Date / Time prochlorperazine AdvReac AGITATION Verified 05/26/17 11:18 [From Compazine] Review of Systems ROS Statement: Those systems with pertinent positive or pertinent negative responses have been documented in the HPI. ROS Other: All systems not noted in ROS Statement are negative. Past Medical History Past Medical History: No Reported History, Hyperlipidemia Additional Past Medical History / Comment(s): ABD. PAIN, DIARRHEA, NAUSEA, Migraine History of Any Multi-Drug Resistant Organisms: None Reported Past Surgical History: Cholecystectomy Additional Past Surgical History / Comment(s): WISDOM TEETH Past Anesthesia/Blood Transfusion Reactions: No Reported Reaction Past Psychological History: ADD/ADHD Smoking Status: Current every day smoker Past Alcohol Use History: Occasional Past Drug Use History: Marijuana General Exam - General Exam Comments Initial Comments: General: The patient is awake and alert, in no distress, and does not appear acutely ill. Eye: Pupils are equal, round and reactive to light, extra-ocular movements are intact. No nystagmus. There is normal conjunctiva bilaterally. No signs of icterus. Ears, nose, mouth and throat: There are moist mucous membranes and no oral lesions. Tender palpation over both frontal and maxillary sinuses. Neck: The neck is supple, there is no tenderness or JVD. Cardiovascular: There is a regular rate and rhythm. No murmur, rub or gallop is appreciated. Respiratory: Lungs are clear to auscultation, respirations are non-labored, breath sounds are equal. No wheezes, stridor, rales, or rhonchi. Musculoskeletal: Normal ROM, no tenderness. Strength 5/5. Sensation intact. Pulses equal bilaterally 2+. Neurological: A&O x 3. CN II-XII intact, There are no obvious motor or sensory deficits. Coordination appears grossly intact. Speech is normal. Skin: Skin is warm and dry and no rashes or lesions are noted. Psychiatric: Cooperative, appropriate mood & affect, normal judgment. Limitations: no limitations Course Vital Signs 05/26/17 10:58 Temperature 97.8 F Pulse Rate 84 Respiratory 18 Rate Blood Pressure 135/86 O2 Sat by Pulse 98 Oximetry Medical Decision Making - Medical Decision Making Patient reexamined at this time is currently sleeping. He is feeling much better. Headache improved. CT is negative for any acute abnormality. Patient does have tenderness over the sinuses. He does with that he's been sick off and on. Will be started on antibiotics cover for sinusitis along with Flonase for the symptoms. Advised follow-up family doctor return if symptoms increase or worsen. Disposition Clinical Impression: Migraine, Sinusitis Disposition: HOME SELF-CARE Condition: Good Instructions: Sinusitis (ED) Additional Instructions: Please use medication as discussed. Please follow-up with family doctor in the next 2 days of symptoms have not improved. Please return to emergency room if the symptoms increase or worsen or for any other concerns. Prescriptions: Amoxicillin/Potassium Clav [Augmentin 875-125 Tablet] 1 each PO Q12HR #20 tab Fluticasone Propionate [Flonase Allergy Relief] 1 - 2 spray EA NOSTRIL DAILY 5 Days ml Naproxen [Naprosyn] 500 mg PO BID #10 tablet Referrals: None,Stated [Primary Care Provider] - 1-2 days Dwight Allen DO [STAFF PHYSICIAN] - 1-2 days Time of Disposition: 13:04
--- NOTE | 2017-05-26 12:42 | CT ---
EXAMINATION TYPE: CT brain wo con DATE OF EXAM: 05/26/2017 COMPARISON: 04/20/2017 INDICATION: Patient complains of new onset first time migraine headache with light sensitivity. DLP: 796 mGycm, Automated exposure control for dose reduction was used. CONTRAST: None CT of the brain is performed utilizing 3 mm thick sections through the posterior fossa and 3 mm thick sections through the remaining calvarium. Study is performed within 24 hours of arrival to the hosp [facility]. No abnormal hyperdensity is present to suggest an acute intracranial hemorrhage. No mass lesion is evident. No acute infarcts are evident. Ventricles and sulci are appropriate for the patient age. Paranasal sinuses and mastoid air cells within the [id number] are clear. IMPRESSIONS: 1. Normal CT Brain
[2017-05-26 13:45] VITALS: BP 134/72; PULSE 80; TEMP 98.2
== END 2017-05-26 13:45 | disposition home or self-care (01) ==
LOC: EC 10:54
DX: G43.909 Migraine, unspecified, not intractable, without status migrainosus (principal); J32.9 Chronic sinusitis, unspecified; F17.200 Nicotine dependence, unspecified, uncomplicated; Z88.8 Allergy status to other drugs, medicaments and biological substances
CPT/HCPCS: 99284; 96374; 96375; 96361; 70450; J2930; J2405

== ENCOUNTER 2017-06-05 04:15 | Emergency (ER) | payer OTHER ==
[2017-06-05] MEDS ORDERED: SODIUM CHLORIDE 0.9% 1,000 ML IV ONE (04:44)
[2017-06-05] MEDS ORDERED: KETOROLAC 60 MG/2 ML VIAL IVP STA (04:44)
[2017-06-05] MEDS ORDERED: diphenhydrAMINE 50 MG/ML 1 ML VIAL IVP STA (04:44)
[2017-06-05] MEDS ORDERED: LORazepam 2 MG/ML INJ IV STA (04:45)
[2017-06-05] MEDS ORDERED: METOCLOPRAMIDE 5 MG/ML 2 ML VIAL IVP STA (04:46)
--- NOTE | 2017-06-05 04:50 | ED ---
General Adult HPI - General Chief complaint: Headache Stated complaint: Migraine Time Seen by Provider: 06/05/17 04:15 Source: patient, RN notes reviewed Mode of arrival: ambulatory Limitations: no limitations - History of Present Illness Initial comments: This is a 21-year-old male who presents emergency Department complaining of a headache for the last 2 weeks. Patient states it's all over his head. Patient denies any vomiting he denies any photophobia. Patient states he was told to follow-up with a primary medical care doctor but has not followed up. Patient denies any visual disturbance patient disturbance. Patient denies any numbness weakness. Patient denies any recent fever chills or cough. Patient denies any neck stiffness. Patient states this migraine headaches it's all over his whole head. When I entered the room the patient is drinking water. - Related Data Previous Rx's Medication Instructions Recorded Amoxicillin/Potassium Clav 1 each PO Q12HR #20 tab 05/26/17 [Augmentin 875-125 Tablet] Fluticasone Propionate [Flonase 1 - 2 spray EA NOSTRIL DAILY 5 05/26/17 Allergy Relief] Days ml Naproxen [Naprosyn] 500 mg PO BID #10 tablet 05/26/17 Allergies Allergy/AdvReac Type Severity Reaction Status Date / Time prochlorperazine AdvReac AGITATION Verified 06/05/17 04:23 [From Compazine] Review of Systems ROS Statement: Those systems with pertinent positive or pertinent negative responses have been documented in the HPI. ROS Other: All systems not noted in ROS Statement are negative. Past Medical History Past Medical History: No Reported History, Hyperlipidemia Additional Past Medical History / Comment(s): ABD. PAIN, DIARRHEA, NAUSEA, Migraine History of Any Multi-Drug Resistant Organisms: None Reported Past Surgical History: Cholecystectomy Additional Past Surgical History / Comment(s): WISDOM TEETH, Past Anesthesia/Blood Transfusion Reactions: No Reported Reaction Past Psychological History: ADD/ADHD Smoking Status: Current every day smoker Past Alcohol Use History: Occasional Past Drug Use History: Marijuana General Exam - General Exam Comments Initial Comments: GENERAL: Patient is well-developed and well-nourished. Patient is nontoxic and well- hydrated and is in mild distress. ENT: Neck is soft and supple. No significant lymphadenopathy is noted. Oropharynx is clear. Moist mucous membranes. Neck has full range of motion without eliciting any pain. EYES: The sclera were anicteric and conjunctiva were pink and moist. Extraocular movements were intact and pupils were equal round and reactive to light. Eyelids were unremarkable. PULMONARY: Unlabored respirations. Good breath sounds bilaterally. No audible rales rhonchi or wheezing was noted. CARDIOVASCULAR: There is a regular rate and rhythm without any murmurs gallops or rubs. ABDOMEN: Soft and nontender with normal bowel sounds. No palpable organomegaly was noted. There is no palpable pulsatile mass. SKIN: Skin is clear with no lesions or rashes and otherwise unremarkable. NEUROLOGIC: Patient is alert and oriented x3. Cranial nerves II through XII are grossly intact. Motor and sensory are also intact. Normal speech, volume and content. Symmetrical smile. MUSCULOSKELETAL: Normal extremities with adequate strength and full range of motion. LYMPHATICS: No significant lymphadenopathy is noted PSYCHIATRIC: Normal psychiatric evaluation. Limitations: no limitations Course Vital Signs 06/05/17 04:19 Temperature 97.7 F Pulse Rate 77 Respiratory 18 Rate Blood Pressure 144/86 O2 Sat by Pulse 100 Oximetry Medical Decision Making - Medical Decision Making After the patient was medicated I went back into reevaluate the patient he states that the headache was considerably better. Disposition Clinical Impression: Headache Disposition: HOME SELF-CARE Instructions: Acute Headache (ED) Additional Instructions: Patient should follow-up with the primary care doctor soon as possible Referrals: None,Stated [Primary Care Provider] - 1-2 days Time of Disposition: 05:43
[2017-06-05] MEDS ORDERED: ONDANSETRON 4 MG/2 ML VIAL IVP STA (04:59)
[2017-06-05 06:01] VITALS: BP 138/80; PULSE 67; RESP 16; TEMP 97.9
== END 2017-06-05 06:01 | disposition home or self-care (01) ==
LOC: EC 04:15
DX: R51 Headache (principal); F17.200 Nicotine dependence, unspecified, uncomplicated; Z86.69 Personal history of other diseases of the nervous system and sense organs; Z53.20 Procedure and treatment not carried out because of patient's decision for unspecified reasons; Z88.8 Allergy status to other drugs, medicaments and biological substances
CPT/HCPCS: 99283; 96374; 96375 ×3; 96361; J2060; J1200; J2405; J1885

== ENCOUNTER 2020-04-02 22:59 | Emergency (ER) | payer BC, OTHER ==
[2020-04-02 23:04] VITALS: TEMP 98.2
--- NOTE | 2020-04-02 23:40 | ED ---
Chest Pain HPI - General Chief Complaint: Chest Pain Stated Complaint: Chest Pain Time Seen by Provider: 04/02/20 23:15 Source: patient, RN notes reviewed, old records reviewed Mode of arrival: ambulatory Limitations: no limitations - History of Present Illness Initial Comments: This is a 24-year-old male DF for evaluation, patient presents with elevated heart rate palpitations. History of A. fib concern for recurrence of atrial fibrillation. Patient has not had a fracture fibrillation since recent significant weight loss. Patient has been diagnosis coronavirus about a month ago which she did recover from, patient has been feeling well and acting appropriately with no real acute illness from his coronavirus experience. He was afebrile throughout different changes with his taste or smell but all symptoms are improved maybe a little fatigue as of late. No other complaints, no change in medications no drug or alcohol abuse MD Complaint: chest pain, other (Palpitations) -: days(s) Onset: during rest, during exertion Pain Location: substernal Severity: mild Severity scale (1-10): 3 Consistency: intermittent Improves With: nothing Worsens With: nothing Anginal Symptoms: other (None) Other Symptoms: palpitations Treatments Prior to Arrival: none - Related Data Previous Rx's Medication Instructions Recorded Amoxicillin/Potassium Clav 1 each PO Q12HR #20 tab 05/26/17 [Augmentin 875-125 Tablet] Fluticasone Propionate [Flonase 1 - 2 spray EA NOSTRIL DAILY 5 05/26/17 Allergy Relief] Days ml Naproxen [Naprosyn] 500 mg PO BID #10 tablet 05/26/17 Allergies Allergy/AdvReac Type Severity Reaction Status Date / Time prochlorperazine AdvReac AGITATION Verified 04/02/20 23:04 [From Compazine] Review of Systems ROS Statement: Those systems with pertinent positive or pertinent negative responses have been documented in the HPI. ROS Other: All systems not noted in ROS Statement are negative. EKG Findings - EKG Comments: EKG Findings:: EKG is sinus rhythm 71, [place] 152 QRS 88 QTc 410 Past Medical History Past Medical History: Atrial Fibrillation, Hyperlipidemia Additional Past Medical History / Comment(s): ABD. PAIN, DIARRHEA, NAUSEA, Migr adair History of Any Multi-Drug Resistant Organisms: None Reported Past Surgical History: Cholecystectomy Additional Past Surgical History / Comment(s): WISDOM TEETH, Past Anesthesia/Blood Transfusion Reactions: No Reported Reaction Past Psychological History: ADD/ADHD Smoking Status: Current every day smoker Past Alcohol Use History: Occasional Past Drug Use History: Marijuana General Exam Limitations: no limitations General appearance: alert, in no apparent distress Head exam: Present: atraumatic, normocephalic, normal inspection Eye exam: Present: normal appearance, PERRL, EOMI. Absent: scleral icterus, conjunctival injection, periorbital swelling ENT exam: Present: normal exam, mucous membranes moist Neck exam: Present: normal inspection. Absent: tenderness, meningismus, lymphadenopathy Respiratory exam: Present: normal lung sounds bilaterally. Absent: respiratory distress, wheezes, rales, rhonchi, stridor Cardiovascular Exam: Present: regular rate, normal rhythm, normal heart sounds. Absent: systolic murmur, diastolic murmur, rubs, gallop, clicks GI/Abdominal exam: Present: soft, normal bowel sounds. Absent: distended, tenderness, guarding, rebound, rigid Extremities exam: Present: normal inspection, full ROM, normal capillary refill. Absent: tenderness, pedal edema, joint swelling, calf tenderness Back exam: Present: normal inspection Neurological exam: Present: alert, oriented X3, CN II-XII intact Psychiatric exam: Present: normal affect, normal mood Skin exam: Present: warm, dry, intact, normal color. Absent: rash Course Vital Signs 04/02/20 23:01 Temperature 98.2 F Pulse Rate 79 Respiratory 18 Rate Blood Pressure 155/95 O2 Sat by Pulse 100 Oximetry - Reevaluation(s) Reevaluation #1: 04/03/20 00:18 Medical record is reviewed Reevaluation #2: 04/03/20 00:18 Patient is a symptomatic throughout ER stay Chest Pain MDM - MDM 24 male DF for chest pain palpitations elevated heart rate while at work. Patient presents to ER normal vital signs throughout ER stay. Can be discharged home Disposition Clinical Impression: Atypical chest pain, Tachycardia, Palpitations Disposition: HOME SELF-CARE Condition: Good Instructions (If sedation given, give patient instructions): Chest Pain (ED), Heart Palpitations (ED), Tachycardia (ED) Is patient prescribed a controlled substance at d/c from ED?: No Referrals: Nonstaff,Physician [Primary Care Provider] - 1-2 days
[2020-04-02 23:53] LABS: Basophils # (A) 0.1 k/uL (0-0.2); Basophils % (A) 2 %; Eosinophils # (A) 0.1 k/uL (0-0.7); Eosinophils % (A) 2 %; HCT 43.2 % (39.0-53.0); Lymphocytes # (A) 2.2 k/uL (1.0-4.8); Lymphocytes % (A) 31 %; MCH 31.1 pg (25.0-35.0); MCHC 34.7 g/dL (31.0-37.0); MCV 89.8 fL (80.0-100.0); Mean Platelet Volume 7.1; Monocytes # (A) 0.4 k/uL (0-1.0); Monocytes % (A) 6 %; Neutrophils # (A) 4.1 k/uL (1.3-7.7); Neutrophils % (A) 59 %; Platelet Count 187 k/uL (150-450); RBC 4.82 m/uL (4.30-5.90); RDW 12.2 % (11.5-15.5); WBC 7.1 k/uL (3.8-10.6)
--- NOTE | 2020-04-03 00:01 | XR ---
EXAMINATION TYPE: XR chest 2V DATE OF EXAM: 04/02/2020 COMPARISON: NONE HISTORY: Chest pain TECHNIQUE: FINDINGS: Heart and mediastinum are normal. Lungs are clear. Diaphragm is normal. Bony thorax appears normal. IMPRESSION: Normal chest. No change.
[2020-04-03 00:05] LABS: ALT 31 U/L (4-49); AST 29 U/L (17-59); African American GFR (CKD) >90 (>60 ml/min/1.73 sqM); Albumin 4.6 g/dL (3.5-5.0); Alkaline Phosphatase 85 U/L (38-126); Anion Gap 7 mmol/L; Blood Urea Nitrogen 21 mg/dL (9-20); C Reactive Protein <5.0 mg/L (<10.0); Calcium 9.6 mg/dL (8.4-10.2); Carbon Dioxide 24 mmol/L (22-30); Chloride 106 mmol/L (98-107); Creatine Kinase 262 U/L (55-170); Glucose 91 mg/dL (74-99); Lipase 68 U/L (23-300); Magnesium 2.1 mg/dL (1.6-2.3); Non-African American GFR(CKD) >90 (>60 ml/min/1.73 sqM); Potassium 4.1 mmol/L (3.5-5.1); Sodium 137 mmol/L (137-145); Total Bilirubin 0.7 mg/dL (0.2-1.3); Total Protein 7.6 g/dL (6.3-8.2)
[2020-04-03 00:14] LABS: Creatine Kinase MB 1.3 ng/mL (0.0-2.4); Troponin I <0.012 ng/mL (0.000-0.034)
[2020-04-03 00:21] LABS: D-Dimer <0.17 mg/L FEU (<0.60); INR 1.1 (<1.2); Partial Thromboplastin Time 26.2 sec (22.0-30.0); Prothrombin Time 11.1 sec (9.0-12.0)
[2020-04-03 01:06] VITALS: BP 123/79; PULSE 65; RESP 20
== END 2020-04-03 01:12 | disposition home or self-care (01) ==
LOC: EC 22:59
DX: R07.89 Other chest pain (principal); R00.2 Palpitations; R00.0 Tachycardia, unspecified; F17.200 Nicotine dependence, unspecified, uncomplicated; Z88.8 Allergy status to other drugs, medicaments and biological substances
CPT/HCPCS: 36415; 71046; 80053; 82550; 82553; 83690; 83735; 83880; 84484; 85025; 85379; 85610; 85730; 86140; 93005; 99285